=== PATIENT | female | born 1960 | race Caucasian/White ===

== ENCOUNTER 2017-05-12 12:16 | Emergency (ER) | payer SELFPAY ==
[2017-05-12 13:16] VITALS: BP 143/90
--- NOTE | 2017-05-12 13:48 | UC ---
[facility] HPI - HPI Summary HPI Summary: complaint of lower back pain that started approx 1.5 weeks ago improved then 4 days ago pain returned in sacrum and right lumbar area non radiating , constant aching pain nothing lessens the pain sitting makes the pain worse taking advil and tylenol without relief 2010 back surgey L4-L5 discetomy Dr Lu has worker's compensation physician appt 05/24/17 denies incontinence, denies fever, no weight loss in a year - History of Current Complaint Hx Obtained From: Patient <Damaris Huitron - Last Filed: 05/12/17 14:04> <Shey Haynes - Last Filed: 05/14/17 07:51> - History of Current Complaint Chief Complaint: UCBackPain Stated Complaint: BACK INJURY Time Seen by Provider: 05/12/17 13:37 - Allergies/Home Medications Allergies/Adverse Reactions: Allergies Allergy/AdvReac Type Severity Reaction Status Date / Time Hydromorphone [From Dilaudid] Allergy Nausea And Verified 05/12/17 13:16 Vomiting Tramadol Allergy Nausea And Verified 05/12/17 13:16 Vomiting PMH/Surg Hx/FS Hx/Imm Hx Previously Healthy: No - lower bcak pain Endocrine History: Dyslipidemia - Surgical History Surgical History: Yes Surgery Procedure, Year, and Place: 2010 LOW BACK SURGERY, [facility]. 2013 BASAL CELL CARCINOMA REMOVED FROM BACK, OFFICE. Left hand - Family History Known Family History: Positive: Hypertension - Social History Alcohol Use: None Substance Use Type: None Smoking Status (MU): Current Every Day Smoker Type: Cigarettes Amount Used/How Often: 1 ppd Length of Time of Smoking/Using Tobacco: SINCE AGE 12 - Have You Smoked in the Last Year: Yes Cessation Counseling: Patient Advised to Stop <Damaris Huitron - Last Filed: 05/12/17 14:04> Review of Systems Constitutional: Negative Skin: Negative Eyes: Negative ENT: Negative Respiratory: Negative Cardiovascular: Negative Gastrointestinal: Negative Genitourinary: Negative Motor: Negative Neurovascular: Negative Musculoskeletal: Other: - lower bcak pain Neurological: Negative Psychological: Negative All Other Systems Reviewed And Are Negative: Yes <Damaris Huitron - Last Filed: 05/12/17 14:04> Physical Exam Triage Information Reviewed: Yes Appearance: No Pain Distress, Well-Nourished Vital Signs: Initial Vital Signs Temp 97.5 F 05/12/17 13:11 Pulse 73 05/12/17 13:11 Resp 18 05/12/17 13:11 BP 143/90 05/12/17 13:11 Pulse Ox 100 05/12/17 13:11 Vital Signs Reviewed: Yes Eyes: Positive: Conjunctiva Clear ENT: Positive: Pharynx normal, TMs normal Neck: Positive: No Lymphadenopathy Respiratory: Positive: Lungs clear, Normal breath sounds, No respiratory distress, No accessory muscle use Cardiovascular: Positive: RRR, No Murmur, Pulses Normal, Brisk Capillary Refill Abdomen Description: Positive: Nontender, Soft Bowel Sounds: Positive: Present Musculoskeletal: Positive: Other: - Spine have no noted deformities or signs of inflammation. Curvature of thoracic, and lumbar spine are within normal limits. Bony features of shoulders and hips are of equal height bilaterally. Posture is upright, and gait is smooth and normal. Spinous processes of T1-L5 palpable, midline, and non-tender; No step-offs. right lumbar and sacral paraspinal tenderness. Flexion, extension, and rotation of the remaining spinal column is limited d/t pain. <Damaris Huitron - Last Filed: 05/12/17 14:04> Vital Signs: Initial Vital Signs Temp 97.5 F 05/12/17 13:11 Pulse 73 05/12/17 13:11 Resp 18 05/12/17 13:11 BP 143/90 05/12/17 13:11 Pulse Ox 100 05/12/17 13:11 <Shey Haynes - Last Filed: 05/14/17 07:51> Dental Complaint Course/Dx - Course Course Of Treatment: exam completed. no red flags to warrant inagin at this time. will treat exacerbation with flexeroil, naproxen and no work for 5 days. followup with worker's compensation physician - Differential Dx/Diagnosis Provider Diagnoses: lower back pain, elevated blood pressure <Damaris Huitron - Last Filed: 05/12/17 14:04> Discharge <Damaris Huitron - Last Filed: 05/12/17 14:04> <Shey Haynes - Last Filed: 05/14/17 07:51> - Discharge Plan Condition: Stable Disposition: HOME Prescriptions: Cyclobenzaprine TAB* [Flexeril 10 MG TAB*] 10 mg PO BEDTIME #14 tab Naproxen TAB* [Naprosyn 250 mg TAB*] 500 mg PO Q8H PRN #20 tab PRN Reason: Pain - Back Patient Education Materials: Low Back Strain (ED) Forms: *Work Release Referrals: Kaylyn Sarmiento MD [Primary Care Provider] - Additional Instructions: Start flexeril as directed. Do not drink alcohol or drive while taking flexeril. Please keep appt with workers compensation physician Take naproxen for pain. Increase fluids and rest. Please review your discharge instructions. If your symptoms do not improve please call your primary care provider or return to urgent care. Attestation Statement User Type: Provider - I was available for consult. This patient was seen by the LU[facility]. The patient was not presented to, seen by, or examined by me. -Jacoby <Shey Haynes - Last Filed: 05/14/17 07:51>
== END 2017-05-12 14:15 | disposition home or self-care (01) ==
LOC: UCEAST 12:16
DX: M54.5 Low back pain (principal); R03.0 Elevated blood-pressure reading, without diagnosis of hypertension; Z72.0 Tobacco use
CPT/HCPCS: 99212; G0463

== ENCOUNTER 2017-08-09 13:41 | Emergency (ER) | payer BC ==
--- NOTE | 2017-08-09 16:47 | UC ---
Knee Pain HPI - HPI Summary HPI Summary: 57 yo female with left knee pain she has had left leg pain x months due to her sciatica today the knee got particularly painful in popliteal region no calf pain or swelling states it feels like her knee cap will "pop off" - History of Current Complaint Chief Complaint: UCLowerExtremity Stated Complaint: LEG/KNEE PAIN Time Seen by Provider: 08/09/17 16:12 Hx Obtained From: Patient Onset/Duration: Gradual Onset, Lasting Weeks, Worse Since - today Severity Initially: Moderate Severity Currently: Mild Pain Intensity: 4 Pain Scale Used: 0-10 Numeric Character: Sharp, Dull, Aching Aggravating Factor(s): Weight Bearing Alleviating Factor(s): Rest Associated Signs And Symptoms: Positive: Swelling - popliteal region Able to Bear Weight: Yes - Allergies/Home Medications Allergies/Adverse Reactions: Allergies Allergy/AdvReac Type Severity Reaction Status Date / Time Hydromorphone [From Dilaudid] AdvReac Nausea And Verified 08/09/17 14:57 Vomiting Tramadol AdvReac Nausea And Verified 08/09/17 14:57 Vomiting Home Medications: Home Medications Ibuprofen [Ibuprofen 200 MG] 800 mg PO 08/09/17 [History] PMH/Surg Hx/FS Hx/Imm Hx Previously Healthy: Yes - Surgical History Surgical History: Yes Surgery Procedure, Year, and Place: 2011 LOWER BACK SURGERY, [facility]. 2014 L hand - states trigger finger surgery - Family History Known Family History: Positive: Hypertension, Other - PVD - Social History Alcohol Use: None Substance Use Type: None Smoking Status (MU): Current Every Day Smoker Type: Cigarettes Amount Used/How Often: 1 ppd Length of Time of Smoking/Using Tobacco: SINCE AGE 12 - Have You Smoked in the Last Year: Yes Cessation Counseling: Patient Advised to Stop Review of Systems Constitutional: Negative Skin: Negative Eyes: Negative ENT: Negative Respiratory: Negative Cardiovascular: Negative Gastrointestinal: Negative Genitourinary: Negative Motor: Negative Neurovascular: Negative Musculoskeletal: Arthralgia Neurological: Negative Psychological: Negative Is Patient Immunocompromised?: No All Other Systems Reviewed And Are Negative: Yes Physical Exam Triage Information Reviewed: Yes Appearance: Well-Appearing, No Pain Distress, Well-Nourished Vital Signs: Initial Vital Signs Temp 98.3 F 08/09/17 14:58 Pulse 81 08/09/17 14:58 Resp 16 08/09/17 14:58 BP 130/69 08/09/17 14:58 Pulse Ox 99 08/09/17 14:58 Eyes: Positive: Conjunctiva Clear ENT: Positive: Hearing grossly normal. Negative: Nasal congestion, Nasal drainage, Tonsillar exudate, Trismus, Muffled/hoarse voice Neck: Positive: Supple, Nontender, No Lymphadenopathy Respiratory: Positive: Lungs clear, Normal breath sounds, No respiratory distress Cardiovascular: Positive: RRR Musculoskeletal: Positive: ROM Intact, No Edema, Other: - knee with FROM/stable/ no effusion noted/(-) SLR Neurological Exam: Normal Neurological: Positive: Alert Psychological Exam: Normal Skin Exam: Normal Diagnostics - Radiology No standard instances Xray Interpretation: No Acute Changes - Kellgren and Nasir grade 1 osteoarthritis Radiology Interpretation Completed By: Radiologist Knee Pain Course/Dx - Differential Dx/Diagnosis Provider Diagnoses: left knee pain of uncertain cause Discharge - Discharge Plan Condition: Stable Disposition: HOME Patient Education Materials: Knee Pain (ED) Forms: *Work Release Referrals: Kaylyn Sarmiento MD [Primary Care Provider] - If Needed () Additional Instructions: knee immobilizer ice twice daily advil or naproxen for pain recheck with your MD or orthopedist first available appt Dr. Cohen [phone] Images Front/Back of Body, Lg ([place]): 1 - tender/no venoud cords/no calf tenderness/no swelling of calf /no warmth/ no bruit
[2017-08-09 16:58] VITALS: BP 149/78
--- NOTE | 2017-08-09 16:59 | RAD ---
Indication: LEFT knee pain without proceeding injury. Comparison: July 07, 2016 Technique: LEFT knee: AP, tunnel, lateral, sunrise views. Report: Slight lateral tilt of the patella relative to the femoral trochlea without gross change. Minimal patellofemoral and medial joint compartment osteophytosis without significant joint space narrowing. Negative for effusion, fracture, or abnormal soft tissue contour. IMPRESSION: Kellgren and Nasir grade 1 osteoarthritis.
== END 2017-08-09 17:28 | disposition home or self-care (01) ==
LOC: UCEAST 13:41
DX: M25.562 Pain in left knee (principal); F17.210 Nicotine dependence, cigarettes, uncomplicated; Z88.5 Allergy status to narcotic agent
CPT/HCPCS: 99211; G0463

== ENCOUNTER 2017-11-20 05:42 | Emergency (ER) | payer BC, OTHER ==
[2017-11-20] MEDS ORDERED: Ibuprofen TAB* 800 MG PO ONE (05:58)
[2017-11-20] MEDS ORDERED: oxyCODONE/Acetamin 5/325 MG* TAB PO ONE (05:58)
--- NOTE | 2017-11-20 06:31 | ED ---
Netta Cast Edward, scribed for Melba Franco MD on 11/20/17 at 0603 . Adult Trauma - HPI Summary HPI Summary: 57 y/o female presents to the ED c/o immediate onset R ankle and L elbow pain s/ p fall at around 05:30 this morning. The pt fell in the parking lot at [facility]. Associated sx: abrasion @ L elbow. The pt's ankle pain is aggravated with movement and weight bearing. - History of Current Complaint Chief Complaint: EDGeneral Stated Complaint: FALL, RIGHT ARM/HAND/ANKLE INJURY Time Seen by Provider: 11/20/17 05:59 Hx Obtained From: Patient Mechanism of Injury: Fall Onset/Duration: Started Minutes Ago Onset of Pain: Immediate Pain Intensity: 8 Location: Extremities - R ankle, L elbow Aggravating Factor(s): Nothing Alleviating Factor(s): Nothing Associated Signs & Symptoms: Positive: Negative, Other: - L elbow abrasion - Allergy/Home Medications Allergies/Adverse Reactions: Allergies Allergy/AdvReac Type Severity Reaction Status Date / Time Hydromorphone [From Dilaudid] AdvReac Nausea And Verified 08/09/17 14:57 Vomiting Tramadol AdvReac Nausea And Verified 08/09/17 14:57 Vomiting PMH/Surg Hx/FS Hx/Imm Hx Previously Healthy: No Endocrine/Hematology History: Denies: Hx Diabetes, Hx Thyroid Disease Cardiovascular History: Denies: Hx Hypertension Respiratory History: Reports: Other Respiratory Problems/Disorders - SOB SOMETIMES, SMOKER Denies: Hx Asthma, Hx Chronic Obstructive Pulmonary Disease (COPD) GI History: Denies: Hx Ulcer Sensory History: Reports: Hx Contacts or Glasses - GLASSES Denies: Hx Hearing Aid Opthamlomology History: Reports: Hx Contacts or Glasses - GLASSES Psychiatric History: Reports: Hx Anxiety - OCCASIONAL BACK PAIN - Cancer History Cancer Type, Location and Year: basal cell BACK Hx Chemotherapy: No Hx Radiation Therapy: No - Surgical History Surgery Procedure, Year, and Place: 2011 LOWER BACK SURGERY, [facility]. 2014 L hand - states trigger finger surgery Hx Anesthesia Reactions: Yes - VOMITING - NEXT DAY - Immunization History Date of Tetanus Vaccine: UTD per patient Infectious Disease History: No Infectious Disease History: Denies: Hx Clostridium Difficile, Hx Hepatitis, Hx Human Immunodeficiency Virus (HIV), Hx of Known/Suspected MRSA, Hx Shingles, Hx Tuberculosis, Hx Known/ Suspected VRE, Hx Known/Suspected VRSA, History Other Infectious Disease, Traveled Outside the [place] in Last 30 Days - Family History Known Family History: Positive: Hypertension, Other - PVD - Social History Alcohol Use: None Hx Substance Use: No Substance Use Type: Reports: None Hx Tobacco Use: No Smoking Status (MU): Current Every Day Smoker Type: Cigarettes Amount Used/How Often: 1 ppd Length of Time of Smoking/Using Tobacco: SINCE AGE 12 - Have You Smoked in the Last Year: Yes Review of Systems Constitutional: Negative Eyes: Negative ENT: Negative Cardiovascular: Negative Respiratory: Negative Gastrointestinal: Negative Genitourinary: Negative Positive: Arthralgia - R ankle, L elbown pain Positive: Other - abrasion over L elbow Neurological: Negative Psychological: Normal All Other Systems Reviewed And Are Negative: Yes Physical Exam - Summary Physical Exam Summary: VITAL SIGNS: Reviewed. GENERAL: Patient is a well-developed and nourished female who is lying comfortable in the stretcher. Patient is not in any acute respiratory distress. HEAD AND FACE: No signs of trauma. No ecchymosis, hematomas or skull depressions. No sinus tenderness. EYES: PERRLA, EOMI x 2, No injected conjunctiva, no nystagmus. EARS: Hearing grossly intact. Ear canals and tympanic membranes are within normal limits. MOUTH: Oropharynx within normal limits. NECK: Supple, trachea is midline, no adenopathy, no JVD, no carotid bruit, no c- spine tenderness, neck with full ROM. CHEST: Symmetric, no tenderness at palpation LUNGS: Clear to auscultation bilaterally. No wheezing or crackles. CVS: Regular rate and rhythm, S1 and S2 present, no murmurs or gallops appreciated. ABDOMEN: Soft, non-tender. No signs of distention. No rebound no guarding, and no masses palpated. Bowel sounds are normal. EXTREMITIES: FROM in all major joints, no cyanosis or clubbing. Pt has mild swelling and tenderness over the R ankle. NEURO: Alert and oriented x 3. No acute neurological deficits. Speech is normal and follows commands. SKIN: Dry and warm. Road rash over L elbow and L hand. Triage Information Reviewed: Yes Vital Signs On Initial Exam: Initial Vitals Temp Pulse Resp BP Pulse Ox 97.8 F 73 18 157/93 96 11/20/17 05:48 11/20/17 05:48 11/20/17 05:48 11/20/17 05:48 11/20/17 05:48 Vital Signs Reviewed: Yes Diagnostics - Vital Signs Vital Signs Temp Pulse Resp BP Pulse Ox 11/20/17 05:48 97.8 F 73 18 157/93 96 - Laboratory Lab Statement: Any lab studies that have been ordered have been reviewed, and results considered in the medical decision making process. - Radiology ANKLE XR Xray Interpretation: No Acute Changes - NO FX Radiology Interpretation Completed By: ED Physician Adult Trauma Course/Dx - Course Assessment/Plan: 57 y/o female presents to the ED c/o immediate onset R ankle and L elbow pain s/p fall at around 05:30 this morning. The pt fell in the parking lot at [facility]. Associated sx: abrasion @ L elbow. The pt's ankle pain is aggravated with movement and weight bearing. ANKLE XR SHOWS NO FX. Pt will be d/ c home with f/u with ortho. - Diagnoses Provider Diagnoses: Right ankle sprain, Abrasion of left upper extremity Discharge - Discharge Plan Condition: Stable Disposition: HOME Prescriptions: oxyCODONE/Acetamin 5/325 MG* [Percocet 5/325 TAB*] 1 tab PO Q6H PRN #14 tab MDD 4 PRN Reason: Pain Patient Education Materials: Ankle Sprain (ED), Abrasion (ED) Referrals: Shady Mcadams MD [Medical Doctor] - 2 Days (PLEASE F/U IN 1-2 DAYS WITH ORTHOPEDICS) Additional Instructions: RETURN TO THE ED FOR WORSENING OF SYMPTOMS The documentation as recorded by the Netta holguin Edward accurately reflects the service I personally performed and the decisions made by Salvador plaza Abdul, MD.
[2017-11-20 06:48] VITALS: BP 134/81
--- NOTE | 2017-11-20 07:54 | RAD ---
INDICATION: Right ankle pain. Fall. COMPARISON: None TECHNIQUE: AP, lateral, and oblique views were obtained. FINDINGS: There is no acute fracture or dislocation. There is lateral soft tissue swelling. IMPRESSION: LATERAL SOFT TISSUE SWELLING.
== END 2017-11-20 06:47 | disposition home or self-care (01) ==
LOC: ED 05:42
DX: S93.401A Sprain of unspecified ligament of right ankle, initial encounter (principal); S50.312A Abrasion of left elbow, initial encounter; W19.XXXA Unspecified fall, initial encounter; Y92.9 Unspecified place or not applicable
CPT/HCPCS: 99282; A9270-GY

== ENCOUNTER 2018-01-25 07:43 | Emergency (ER) | payer SELFPAY ==
[2018-01-25 08:47] VITALS: BP 138/68
--- NOTE | 2018-02-05 12:50 | ED ---
Alf Cast Jason, scribed for Petros Talley MD on 01/25/18 at 0951 . Laceration/Wound HPI - HPI Summary HPI Summary: his patient is a 57 year old F presenting to [facility] with a chief complaint of right hand finger laceration since 07 today. The patient states that she sliced the right 2nd and 3rd fingers on a grader green meat while working in a kitchen. I was cleaning the machine while the blade was spinning. The patient rates the pain 0/10 in severity. Symptoms aggravated by nothing. Symptoms alleviated by nothing. Patient reports fingertip numbness. Patient denies pain. The patient includes her tetanus is up to date, having her last shot 2 years ago. - History of Current Complaint Stated Complaint: RT HAND LAC Time Seen by Provider: 01/25/18 08:08 Hx Obtained From: Patient Onset/Duration: Sudden Onset, Still Present Aggravating: Nothing Alleviating: Nothing Pain Intensity: 2 Pain Scale Used: 0-10 Numeric Associated Signs & Symptoms: Numbness - fingertip - Allergy/Home Medications Allergies/Adverse Reactions: Allergies Allergy/AdvReac Type Severity Reaction Status Date / Time hydromorphone [From Dilaudid] Allergy Severe Nausea And Verified 01/25/18 07:52 Vomiting tramadol Allergy Severe Nausea And Verified 01/25/18 07:52 Vomiting PMH/Surg Hx/FS Hx/Imm Hx Previously Healthy: No Endocrine/Hematology History: Denies: Hx Diabetes, Hx Thyroid Disease Cardiovascular History: Denies: Hx Hypertension Respiratory History: Reports: Other Respiratory Problems/Disorders - SOB SOMETIMES, SMOKER Denies: Hx Asthma, Hx Chronic Obstructive Pulmonary Disease (COPD) GI History: Denies: Hx Ulcer Sensory History: Reports: Hx Contacts or Glasses - GLASSES Denies: Hx Hearing Aid Opthamlomology History: Reports: Hx Contacts or Glasses - GLASSES Psychiatric History: Reports: Hx Anxiety - OCCASIONAL BACK PAIN - Cancer History Cancer Type, Location and Year: basal cell BACK Hx Chemotherapy: No Hx Radiation Therapy: No - Surgical History Surgery Procedure, Year, and Place: 2010 LOWER BACK SURGERY, [place]. 2014 L hand - states trigger finger surgery Hx Anesthesia Reactions: Yes - VOMITING - NEXT DAY - Immunization History Date of Tetanus Vaccine: 2015 Infectious Disease History: Yes Infectious Disease History: Denies: Hx Clostridium Difficile, Hx Hepatitis, Hx Human Immunodeficiency Virus (HIV), Hx of Known/Suspected MRSA, Hx Shingles, Hx Tuberculosis, Hx Known/ Suspected VRE, Hx Known/Suspected VRSA, History Other Infectious Disease, Traveled Outside the [place] in Last 30 Days - Family History Known Family History: Positive: Hypertension, Other - PVD - Social History Alcohol Use: None Hx Substance Use: No Substance Use Type: Reports: None Hx Tobacco Use: No Smoking Status (MU): Current Every Day Smoker Type: Cigarettes Amount Used/How Often: 1 ppd Length of Time of Smoking/Using Tobacco: SINCE AGE 12 - Have You Smoked in the Last Year: Yes Review of Systems Negative: Fever, Chills Eyes: Negative - erythema (eyes) Negative: Sore Throat Negative: Chest Pain Negative: Shortness Of Breath, Cough Negative: Abdominal Pain, Vomiting, Nausea Negative: dysuria, hematuria Positive: Other - Superficial laceration on fingertips of 2nd and 3rd fingers. Negative: Myalgia, Edema Negative: Rash Neurological: Negative - dizziness All Other Systems Reviewed And Are Negative: Yes Physical Exam - Summary Physical Exam Summary: Constitutional: Well-developed, Well-nourished, Alert. (-) Distressed Skin: Warm, Dry HENT: Normocephalic; Atraumatic Eyes: Conjunctiva normal Neck: Musculoskeletal ROM normal neck. (-) JVD, (-) Stridor, (-) Tracheal deviation Cardio: Rhythm regular, rate normal, Heart sounds normal; Intact distal pulses; The pedal pulses are 2+ and symmetric. Radial pulses are 2+ and symmetric. (-) Murmur Pulmonary/Chest wall: Effort normal. (-) Respiratory distress, (-) Wheezes, (-) Rales Abd: Soft, (-) Tenderness, (-) Distension, (-) Guarding, (-) Rebound Musculoskeletal: (-) Edema. Superficial laceration on fingertips of 2nd and 3rd fingers, 1 cm long, on the lateral aspect of each finger. No involvement of the nail bed. No active bleeding. The area was irrigated scrubbed and steri- stripped by nursing. Lymph: (-) Cervical adenopathy Neuro: Alert, Oriented x3 Psych: Mood and affect Normal Triage Information Reviewed: Yes Vital Signs On Initial Exam: Initial Vitals Temp Pulse Resp BP Pulse Ox 97.3 F 82 16 138/71 97 01/25/18 07:44 01/25/18 07:44 01/25/18 07:44 01/25/18 07:44 01/25/18 07:44 Vital Signs Reviewed: Yes Diagnostics - Vital Signs Vital Signs Temp Pulse Resp BP Pulse Ox 01/25/18 08:46 98.6 F 78 16 138/68 98 01/25/18 07:44 97.3 F 82 16 138/71 97 - Laboratory Lab Statement: Any lab studies that have been ordered have been reviewed, and results considered in the medical decision making process. Laceration Repair Course/Dx - Course Course Of Treatment: No suspicion for tendon injury or foreign body. - Clinical Impression Provider Diagnoses: Finger laceration Discharge - Sign-Out/Discharge Documenting (check all that apply): Discharge - Discharge Plan Condition: Good Disposition: HOME Patient Education Materials: Finger Laceration (ED) Referrals: Kaylyn Sarmiento MD [Primary Care Provider] - 5 Days Additional Instructions: RETURN TO THE EMERGENCY DEPARTMENT FOR CHANGING OR WORSENING SYMPTOMS - Billing Disposition and Condition Condition: GOOD Disposition: HOME The documentation as recorded by the Alf holguin Jason accurately reflects the service I personally performed and the decisions made by , Petros Talley MD.
== END 2018-01-25 08:46 | disposition home or self-care (01) ==
LOC: ED 07:43
DX: S61.219A Laceration without foreign body of unspecified finger without damage to nail, initial encounter (principal); F17.210 Nicotine dependence, cigarettes, uncomplicated; W31.82XA Contact with other commercial machinery, initial encounter; Y92.9 Unspecified place or not applicable
CPT/HCPCS: 99282

== ENCOUNTER 2018-11-22 13:40 | Emergency (ER) | payer BC ==
[2018-11-22 13:50] VITALS: BP 152/86
--- NOTE | 2018-11-22 16:16 | UC ---
Ear Complaint HPI - HPI Summary HPI Summary: 2 weeks of sinus pressure, cough and congestion. About a week ago her right ear started to hurt. No hearing loss or drainage from the ear. No fever. No nausea/vomiting. Does not feel she is improving at all. - History of Current Complaint Chief Complaint: UCEar Stated Complaint: EAR PAIN Time Seen by Provider: 11/22/18 15:49 Hx Obtained From: Patient Onset/Duration: Gradual Onset, Lasting Weeks, Still Present Severity Initially: Moderate Severity Currently: Moderate Pain Intensity: 4 Pain Scale Used: 0-10 Numeric Aggravating Factors: Nothing Alleviating Factors: Nothing Associated Signs/Symptoms: Positive: URI Symptoms. Negative: Discharge, Hearing Loss - Allergies/Home Medications Allergies/Adverse Reactions: Allergies Allergy/AdvReac Type Severity Reaction Status Date / Time hydromorphone [From Dilaudid] Allergy Severe Nausea And Verified 11/22/18 13:50 Vomiting tramadol Allergy Severe Nausea And Verified 11/22/18 13:50 Vomiting PMH/Surg Hx/FS Hx/Imm Hx Other Cancer History: BASAL CELL CANCER - Surgical History Surgical History: Yes Surgery Procedure, Year, and Place: 2011 LOWER BACK SURGERY, [place]. 2013 L hand - states trigger finger surgery - Family History Known Family History: Positive: Hypertension, Other - PVD - Social History Alcohol Use: None Substance Use Type: None Smoking Status (MU): Current Every Day Smoker Type: Cigarettes Amount Used/How Often: 1 ppd Length of Time of Smoking/Using Tobacco: SINCE AGE 12 - Have You Smoked in the Last Year: Yes Review of Systems All Other Systems Reviewed And Are Negative: Yes Constitutional: Positive: Fatigue ENT: Positive: Ear Ache, Nasal Discharge, Sinus Congestion Respiratory: Positive: Cough Cardiovascular: Positive: Negative Gastrointestinal: Positive: Negative Neurological: Positive: Headache Physical Exam Triage Information Reviewed: Yes Appearance: Well-Appearing, No Pain Distress, Well-Nourished Vital Signs: Initial Vital Signs Temp 97.5 F 11/22/18 13:47 Pulse 84 11/22/18 13:47 Resp 17 11/22/18 13:47 BP 152/86 11/22/18 13:47 Pulse Ox 100 11/22/18 13:47 Vital Signs Reviewed: Yes Eyes: Positive: Conjunctiva Clear ENT: Positive: Hearing grossly normal, Pharynx normal, TMs normal, Hoarse voice Neck: Positive: Supple, Nontender Respiratory Exam: Normal Cardiovascular Exam: Normal Abdomen Description: Positive: Soft Musculoskeletal: Positive: No Edema Neurological: Positive: Alert Psychological: Positive: Age Appropriate Behavior Skin: Negative: Rashes Ear Complaint Course/Dx - Differential Dx/Diagnosis Provider Diagnosis: Acute rhinosinusitis Discharge - Sign-Out/Discharge Documenting (check all that apply): Patient Departure All imaging exams completed and their final reports reviewed: No Studies - Discharge Plan Condition: Stable Disposition: HOME Prescriptions: Azithromycin 500 mg PO DAILY #5 tab Patient Education Materials: Rhinosinusitis (ED) Referrals: Kaylyn Sarmiento MD [Primary Care Provider] - If Needed Additional Instructions: YOUR SYMPTOMS ARE LIKELY VIRALLY MEDIATED AND SHOULD RESOLVE ON THEIR OWN WITH TIME. NO INDICATION FOR ANTIBIOTICS AT PRESENT. REST, HYDRATE, OTC MEDS NEEDED. FILL RX FOR ANTIBIOTICS IF YOU ARE NOT IMPROVING OVER THE NEXT 1-2 WEEKS. IF YOU START THE MEDICINE BE SURE TO TAKE IT FOR THE FULL COURSE. - Billing Disposition and Condition Condition: STABLE Disposition: Home
== END 2018-11-22 16:14 | disposition home or self-care (01) ==
LOC: UCEAST 13:40
DX: J01.90 Acute sinusitis, unspecified (principal); Z88.5 Allergy status to narcotic agent; F17.210 Nicotine dependence, cigarettes, uncomplicated
CPT/HCPCS: 99212; G0463